=== PATIENT | female | born 1970 | race Caucasian/White ===

== ENCOUNTER 2016-12-23 16:24 | Observation (INO) | payer MEDICAID ==
[2016-12-23] MEDS ORDERED: NS 1,000 ML IV ONE (16:48)
--- NOTE | 2016-12-23 16:48 | EDPHY ---
H & P Stated Complaint: 6 months weakness/dizzy lab tests with low hgb/hct HPI/ROS: HPI CHIEF COMPLAINT: Generalized weak, Possible Anemia, Fatigue HISTORY OF PRESENT ILLNESS: This patient very pleasant 46-year-old female, denies any significant medical history does not take any daily medications, she does tell me she takes the [place], [place] root, who presents to the emergency room with fatigue x1 year, generalized weakness with worsening lightheadedness. She went saw her primary care doctor at [facility], and had routine blood work done and was notified that she has a very low hemoglobin of 4.5. She denies black tarry stool, denies vomiting blood, denies blood in her urine. She does tell me that she has menstrual periods at a rather heavy every month. Currently this time she denies chest pain. She does get dyspnea on exertion. Past Medical History: Denies medical history Past Surgical History: Denies surgical Social History: Occasional tobacco use, uses [place] Family History: Noncontributory ROS REVIEW OF SYSTEMS: A comprehensive 10 point review of systems is otherwise negative aside from elements mentioned in the history of present illness. Exam Constitutional appears well nontoxic, triage nursing summary reviewed, vital signs reviewed, awake/alert. Eyes normal conjunctivae and sclera, EOMI, PERRLA. HENT pale conjunctivae , atraumatic, moist mucus membranes, no epistaxis, neck supple/ no meningismus, no raccoon eyes. Respiratory clear to auscultation bilaterally, normal breath sounds, no respiratory distress, no wheezing. Cardiovascular rate normal, regular rhythm, no murmur, no edema, distal pulses normal. Gastrointestinal soft, non-tender, no rebound, no guarding, normal bowel sounds, no distension, no pulsatile mass. Genitourinary no CVA tenderness. Musculoskeletal no midline vertebral tenderness, full range of motion, no calf swelling, no tenderness of extremities, no meningismus, good pulses, neurovascularly intact. Skin pink, warm, & dry, no rash, skin atraumatic. Neurologic awake, alert and oriented x 3, AAOx3, moves all 4 extremities equally, motor intact, sensory intact, CN II-XII intact, normal cerebellar, normal vision, normal speech. Psychiatric normal mood/affect. Heme/Lymph/Immune no lymphadenopathy. Differential Diagnosis: Includes but is not limited to in a particular order, severe anemia, blood loss anemia, microcytic anemia Medical Decision Making: Plan for this patient will type and screen, 2 IVs, will need rectal exam to rule out occult blood feces. Check urinalysis. Check hemoglobin H&H. May need blood transfusion. Re-evaluation: Rectal exam performed. Structural Designer at bedside ALYSA Peña. Rectal exam dark stool. Minimal vault. No mass. 1807: Patient's hemoglobin 4.1. Patient has been typed and screen. 2 large- bore IVs. I have ordered her 2 units of packed red blood cells. I did send blood studies. I did speak with Dr. Mike Urbina who agrees to admit this patient. Patient hemodynamically stable at this time. Rectal exam brown stool. No blood. Possible anemia from menorrhagia. No active vaginal bleeding at this time. Source: Patient - Personal History LMP (Females 10-55): 15-21 Days Ago Current Tetanus/Diphtheria Vaccine: No - Medical/Surgical History Hx Asthma: No Hx Chronic Respiratory Disease: No Hx Diabetes: No Hx Cardiac Disease: No Hx Renal Disease: No Hx Cirrhosis: No Hx Alcoholism: No Hx HIV/AIDS: No Hx Splenectomy or Spleen Trauma: No Other PMH: denies - Social History Smoking Status: Current some day smoker Constitutional: Initial Vital Signs Temperature (C) 36.9 C 12/23/16 16:29 Heart Rate 91 12/23/16 16:29 Respiratory Rate 17 12/23/16 16:29 Blood Pressure 98/70 L 12/23/16 16:29 O2 Sat (%) 99 12/23/16 16:29 O2 Delivery Mode Room Air Allergies/Adverse Reactions: No Known Allergies Allergy (Unverified 12/23/16 16:29) Home Medications: Medication Instructions Recorded NK [No Known Home Meds] 12/23/16 Medical Decision Making - Data Points Laboratory Results: Laboratory Results 12/23/16 17:08 12/23/16 17:08 12/23/16 12/23/16 12/23/16 17:35 17:25 17:08 WBC RBC Hgb Hct MCV MCH MCHC RDW Plt Count MPV Neut % (Auto) Lymph % (Auto) Geary % (Auto) Eos % (Auto) Baso % (Auto) Nucleat RBC Rel Count Absolute Neuts (auto) Absolute Lymphs (auto) Absolute Monos (auto) Absolute Eos (auto) Absolute Basos (auto) Absolute Nucleated RBC Immature Gran % Immature Gran # Platelet Estimate Smear Review By PT INR APTT Sodium Potassium Chloride Carbon Dioxide Anion Gap BUN Creatinine Estimated GFR Glucose Calcium Iron TIBC Iron Saturation Ferritin Total Bilirubin Conjugated Bilirubin Unconjugated Bilirubin AST ALT Alkaline Phosphatase Total Protein Albumin Lipase Beta HCG, Qual Urine Color PALE YELLOW Urine Appearance HAZY Urine pH 5.0 (5.0-7.5) Ur Specific [place] 1.003 (1.002-1.030) Urine Protein NEGATIVE (NEGATIVE) Urine Ketones NEGATIVE (NEGATIVE) Urine Blood NEGATIVE (NEGATIVE) Urine Nitrate NEGATIVE (NEGATIVE) Urine Bilirubin NEGATIVE (NEGATIVE) Urine Urobilinogen NEGATIVE EU EU (0.2-1.0) Ur Leukocyte Esterase NEGATIVE (NEGATIVE) Urine Glucose NEGATIVE (NEGATIVE) Stool Occult Bld Scrn NEGATIVE (NEGATIVE) Patient ABO/Rh O NEGATIVE Antibody Screen NEGATIVE Crossmatch IS Only See Detail 12/23/16 12/23/16 12/23/16 17:08 17:08 17:08 WBC RBC Hgb Hct MCV MCH MCHC RDW Plt Count MPV Neut % (Auto) Lymph % (Auto) Geary % (Auto) Eos % (Auto) Baso % (Auto) Nucleat RBC Rel Count Absolute Neuts (auto) Absolute Lymphs (auto) Absolute Monos (auto) Absolute Eos (auto) Absolute Basos (auto) Absolute Nucleated RBC Immature Gran % Immature Gran # Platelet Estimate Smear Review By PT 14.3 SEC SEC (12.0-15.0) INR 1.12 (0.83-1.16) APTT 30.1 SEC SEC (23.0-38.0) Sodium 136 mEq/L mEq/L (134-144) Potassium 4.4 mEq/L mEq/L (3.5-5.2) Chloride 105 mEq/L mEq/L (97-110) Carbon Dioxide 18 mEq/l L mEq/l (22-31) Anion Gap 13 mEq/L mEq/L (8-16) BUN 10 mg/dL mg/dL (7-23) Creatinine 0.6 mg/dL mg/dL (0.6-1.0) Estimated GFR > 60 Glucose 90 mg/dL mg/dL (70-100) Calcium 9.1 mg/dL mg/dL (8.5-10.4) Iron 19.0 mcg/dL L mcg/dL (37-170) TIBC 499 ug/dL H ug/dL (260-490) Iron Saturation 4 % L % (20-55) Ferritin Pending Total Bilirubin 1.5 mg/dL H mg/dL (0.1-1.4) Conjugated Bilirubin 0.3 mg/dL mg/dL (0.0-0.5) Unconjugated Bilirubin 1.2 mg/dL H mg/dL (0.0-1.1) AST 16 IU/L IU/L (14-46) ALT 22 IU/L IU/L (9-52) Alkaline Phosphatase 62 IU/L IU/L (38-126) Total Protein 7.4 g/dL g/dL (6.3-8.2) Albumin 4.6 g/dL g/dL (3.5-5.0) Lipase 73.0 IU/L IU/L (23-300) Beta HCG, Qual NEGATIVE Urine Color Urine Appearance Urine pH Ur Specific [place] Urine Protein Urine Ketones Urine Blood Urine Nitrate Urine Bilirubin Urine Urobilinogen Ur Leukocyte Esterase Urine Glucose Stool Occult Bld Scrn Patient ABO/Rh Antibody Screen Crossmatch IS Only 12/23/16 17:08 WBC 5.60 10^3/uL 10^3/uL (3.80-9.50) RBC 3.16 10^6/uL L 10^6/uL (4.18-5.33) Hgb 4.1 g/dL L* g/dL (12.6-16.3) Hct 18.3 % L % (38.0-47.0) MCV 57.9 fL L fL (81.5-99.8) MCH 13.0 pg L pg (27.9-34.1) MCHC 22.4 g/dL L g/dL (32.4-36.7) RDW 22.5 % H % (11.5-15.2) Plt Count 374 10^3/uL 10^3/uL (150-400) MPV TNP Neut % (Auto) 51.2 % % (39.3-74.2) Lymph % (Auto) 38.4 % % (15.0-45.0) Geary % (Auto) 7.3 % % (4.5-13.0) Eos % (Auto) 2.5 % % (0.6-7.6) Baso % (Auto) 0.2 % L % (0.3-1.7) Nucleat RBC Rel Count 0.5 % H % (0.0-0.2) Absolute Neuts (auto) 2.87 10^3/uL 10^3/uL (1.70-6.50) Absolute Lymphs (auto) 2.15 10^3/uL 10^3/uL (1.00-3.00) Absolute Monos (auto) 0.41 10^3/uL 10^3/uL (0.30-0.80) Absolute Eos (auto) 0.14 10^3/uL 10^3/uL (0.03-0.40) Absolute Basos (auto) 0.01 10^3/uL L 10^3/uL (0.02-0.10) Absolute Nucleated RBC 0.03 10^3/uL H 10^3/uL (0-0.01) Immature Gran % 0.4 % % (0.0-1.1) Immature Gran # 0.02 10^3/uL 10^3/uL (0.00-0.10) Platelet Estimate Pending Smear Review By Pending PT INR APTT Sodium Potassium Chloride Carbon Dioxide Anion Gap BUN Creatinine Estimated GFR Glucose Calcium Iron TIBC Iron Saturation Ferritin Total Bilirubin Conjugated Bilirubin Unconjugated Bilirubin AST ALT Alkaline Phosphatase Total Protein Albumin Lipase Beta HCG, Qual Urine Color Urine Appearance Urine pH Ur Specific [place] Urine Protein Urine Ketones Urine Blood Urine Nitrate Urine Bilirubin Urine Urobilinogen Ur Leukocyte Esterase Urine Glucose Stool Occult Bld Scrn Patient ABO/Rh Antibody Screen Crossmatch IS Only Medications Given: Discontinued Medications Sodium Chloride (Ns) 1,000 mls @ 0 mls/hr IV ONCE ONE; Wide Open PRN Reason: Protocol Stop: 12/23/16 16:49 Last Admin: 12/23/16 17:26 Dose: 1,000 mls Departure - Departure Disposition: [facility] Inpatient Acute Clinical Impression: Fatigue Qualifiers: Fatigue type: unspecified Qualified Code(s): R53.83 - Other fatigue Anemia Qualifiers: Anemia type: unspecified type Qualified Code(s): D64.9 - Anemia, unspecified Condition: Fair Referrals: Binta Thompson NP [Primary Care Provider] - As per Instructions
[2016-12-23 17:25] LABS: % IMMATURE GRANULYOCYTES 0.4 % (0.0-1.1); ABSOLUTE IMMATURE GRANULOCYTES 0.02 10^3/uL (0.00-0.10); ABSOLUTE NRBC COUNT 0.03 10^3/uL (0-0.01); ADD DIFF? NO; ADD MORPH? YES; ADD SCAN? NO; ATYPICAL LYMPHOCYTE FLAG 10 (0-99); FRAGMENT RBC FLAG 70 (0-99); HEMATOCRIT 18.3 % (38.0-47.0); LEFT SHIFT FLG 0 (0-99); LIPEMIA HEMOLYSIS FLAG 50 (0-99); NRBC-AUTO% 0.5 % (0.0-0.2); PLATELET CLUMPS FLAG 70 (0-99); PLATELET COUNT 374 10^3/uL (150-400); RED BLOOD CELL COUNT 3.16 10^6/uL (4.18-5.33)
[2016-12-23 17:28] LABS: MEAN CELL HEMOGLOBIN CONCENTR. 22.4 g/dL (32.4-36.7); MEAN CELL VOLUME 57.9 fL (81.5-99.8); RED CELL DISTRIBUTION WIDTH 22.5 % (11.5-15.2)
[2016-12-23 17:29] LABS: HEMOGLOBIN 4.1 g/dL (12.6-16.3)
[2016-12-23 17:38] LABS: COLOR PALE YELLOW; LEUKOCYTE ESTERASE,URINE NEGATIVE (NEGATIVE); NITRITE,URINE NEGATIVE (NEGATIVE)
[2016-12-23 17:44] LABS: ALANINE AMINOTRANSFERASE 22 IU/L (9-52); ALBUMIN 4.6 g/dL (3.5-5.0); ALKALINE PHOSPHATASE 62 IU/L (38-126); ANION GAP 13 mEq/L (8-16); ASPARTATE AMINOTRANSFERASE 16 IU/L (14-46); BILIRUBIN,TOTAL 1.5 mg/dL (0.1-1.4); BILIRUBIN-CONJUGATED 0.3 mg/dL (0.0-0.5); BILIRUBIN-UNCONJUGATED 1.2 mg/dL (0.0-1.1); CALCIUM 9.1 mg/dL (8.5-10.4); CARBON DIOXIDE 18 mEq/l (22-31); CHLORIDE 105 mEq/L (97-110); CREATININE 0.6 mg/dL (0.6-1.0); GLOMERULAR FILTRATION RATE > 60; GLUCOSE 90 mg/dL (70-100); POTASSIUM 4.4 mEq/L (3.5-5.2); SODIUM 136 mEq/L (134-144); TOTAL PROTEIN 7.4 g/dL (6.3-8.2)
[2016-12-23 17:48] LABS: INR 1.12 (0.83-1.16); PROTIME(PATIENT) 14.3 SEC (12.0-15.0)
[2016-12-23 17:49] LABS: APTT 30.1 SEC (23.0-38.0)
[2016-12-23 17:54] LABS: % SATURATION 4 % (20-55); TOTAL IRON BINDING CAPACITY 499 ug/dL (260-490)
[2016-12-23 18:19] LABS: FERRITIN - BCH 2.1 ng/mL (6.2-264.0)
[2016-12-23 18:30] LABS: ELLIPTOCYTES 1+; HYPOCHROMIA 3+; MICROCYTES 3+; PLATELET ESTIMATE ADEQUATE (ADEQ); POLYCHROMASIA 1+
[2016-12-23] MEDS ORDERED: ONDANSETRON 4 MG/2 ML VIAL IVP PRN (18:35)
[2016-12-23] MEDS ORDERED: ONDANSETRON DISINTEGRATING 4 MG TAB PO PRN (18:35)
[2016-12-23] MEDS ORDERED: ACETAMINOPHEN 325 MG TAB PO PRN (18:35)
--- NOTE | 2016-12-23 19:19 | PDGENHP ---
History and Physical - Chief Complaint Acute dizziness - History of Present Illness primary care provider: Binta Thompson at [facility] HPI: 46-year-old female presenting with acute dizziness characterized as a foggy lightheaded feeling with associated visual changes of white specks exacerbated by standing, alleviated by sitting, occurring intermittently over the past couple months with associated generalized fatigue. She reports that the fatigue began approximately 6 months ago and has been progressive and persistent thereafter. She has sought the attention of her energy practitioner as well as her primary care provider who performed an EKG and sent a CBC. The EKG was reportedly normal but the CBC demonstrated severe anemia. The patient was instructed to come to the emergency department. She denies overt chest pain , palpitations, shortness of breath. The symptoms occurred in the context of significantly length and and heavy menstrual cycles beginning approximately 18 months ago. At that time, the patient returned from a trip in [facility] and she experienced what she describes as menorrhagia lasting 14 days. Since that time, she has experienced monthly cycles which last approximately 7-10 days. The bleeding is particularly profuse for approximately 2-3 of those days. She otherwise has not experienced any change in her bowel movements and notes that her stool consistency is still brown and regular. She has noted bloating after meals but reports that overall her appetite has been good and she regularly eats a balanced diet consisting of vegetables and meat. She had originally attributed her fatigue to interrupted sleeping patterns which she experiences on a regular basis with her [employer] ceremonies. 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 Her last particularly lengthy ceremony was 3 months ago and it lasted several nights. History Information - Allergies/Home Medication List Allergies/Adverse Reactions: No Known Allergies Allergy (Unverified 12/23/16 16:29) Home Medications: NK [No Known Home Meds] 12/23/16 [Last Taken Unknown] I have personally reviewed and updated: family history, medical history, social history, surgical history - Past Medical History Additional medical history: She was told she had anemia around age 20, but it has never been an issue in her adult life - Surgical History Reports: no pertinent surgical hx - Family History Additional family history: No family history of anemias or blood dyscrasias - Social History Smoking Status: Current some day smoker Alcohol Use: None Drug Use: Other (regular use of ayauasca for spiritual/ceremonial purposes) Additional social history: Emotionally challenging 18 months for the patient, reprocessing childhood trauma Review of Systems ROS: 10pt was reviewed & negative except for what was stated in HPI & below Constitutional: Reports: weakness Neurological: Reports: other (dizziness) Physical Exam Temp Pulse Resp BP Pulse Ox 36.6 C 78 18 114/67 95 12/23/16 18:00 12/23/16 18:00 12/23/16 18:00 12/23/16 18:00 12/23/16 18:00 Constitutional: no apparent distress, appears nourished, not in pain, other ( pale appearing) Eyes: PERRL, EOMI, icteric sclera Ears, Nose, Mouth, Throat: moist mucous membranes, hearing normal, ears appear normal, no oral mucosal ulcers Cardiovascular: regular rate and rhythym, no murmur, rub, or gallop, No edema Respiratory: no respiratory distress, no rales or rhonchi, clear to auscultation Gastrointestinal: normoactive bowel sounds, soft, non-tender abdomen, no palpable masses Genitourinary: no bladder fullness, no bladder tenderness Skin: warm, normal color, no rashes or abrasions, no fluctuance, no induration, No mottled Neurologic: AAOx3, sensation intact bilaterally, No weakness (motor 5/5 all ext) Psychiatric: interacting appropriately, not anxious, not encephalopathic, thought process linear, other Lab Data & Imaging Review 12/23/16 17:08 12/23/16 17:08 WBC 5.60 10^3/uL (3.80-9.50) 12/23/16 17:08 RBC 3.16 10^6/uL (4.18-5.33) L 12/23/16 17:08 Hgb 4.1 g/dL (12.6-16.3) L* 12/23/16 17:08 Hct 18.3 % (38.0-47.0) L 12/23/16 17:08 MCV 57.9 fL (81.5-99.8) L 12/23/16 17:08 MCH 13.0 pg (27.9-34.1) L 12/23/16 17:08 MCHC 22.4 g/dL (32.4-36.7) L 12/23/16 17:08 RDW 22.5 % (11.5-15.2) H 12/23/16 17:08 Plt Count 374 10^3/uL (150-400) 12/23/16 17:08 MPV TNP 12/23/16 17:08 Neut % (Auto) 51.2 % (39.3-74.2) 12/23/16 17:08 Lymph % (Auto) 38.4 % (15.0-45.0) 12/23/16 17:08 [place] % (Auto) 7.3 % (4.5-13.0) 12/23/16 17:08 Eos % (Auto) 2.5 % (0.6-7.6) 12/23/16 17:08 Baso % (Auto) 0.2 % (0.3-1.7) L 12/23/16 17:08 Nucleat RBC Rel Count 0.5 % (0.0-0.2) H 12/23/16 17:08 Absolute Neuts (auto) 2.87 10^3/uL (1.70-6.50) 12/23/16 17:08 Absolute Lymphs (auto) 2.15 10^3/uL (1.00-3.00) 12/23/16 17:08 Absolute Monos (auto) 0.41 10^3/uL (0.30-0.80) 12/23/16 17:08 Absolute Eos (auto) 0.14 10^3/uL (0.03-0.40) 12/23/16 17:08 Absolute Basos (auto) 0.01 10^3/uL (0.02-0.10) L 12/23/16 17:08 Absolute Nucleated RBC 0.03 10^3/uL (0-0.01) H 12/23/16 17:08 Immature Gran % 0.4 % (0.0-1.1) 12/23/16 17:08 Immature Gran # 0.02 10^3/uL (0.00-0.10) 12/23/16 17:08 Platelet Estimate ADEQUATE (ADEQ) 12/23/16 17:08 Polychromasia 1+ H 12/23/16 17:08 Hypochromasia 3+ H 12/23/16 17:08 Microcytic Cells 3+ H 12/23/16 17:08 Tear Drop Cells 1+ H 12/23/16 17:08 Elliptocytes 1+ H 12/23/16 17:08 PT 14.3 SEC (12.0-15.0) 12/23/16 17:08 INR 1.12 (0.83-1.16) 12/23/16 17:08 APTT 30.1 SEC (23.0-38.0) 12/23/16 17:08 Sodium 136 mEq/L (134-144) 12/23/16 17:08 Potassium 4.4 mEq/L (3.5-5.2) 12/23/16 17:08 Chloride 105 mEq/L (97-110) 12/23/16 17:08 Carbon Dioxide 18 mEq/l (22-31) L 12/23/16 17:08 Anion Gap 13 mEq/L (8-16) 12/23/16 17:08 BUN 10 mg/dL (7-23) 12/23/16 17:08 Creatinine 0.6 mg/dL (0.6-1.0) 12/23/16 17:08 Estimated GFR > 60 12/23/16 17:08 Glucose 90 mg/dL (70-100) 12/23/16 17:08 Calcium 9.1 mg/dL (8.5-10.4) 12/23/16 17:08 Iron 19.0 mcg/dL (37-170) L 12/23/16 17:08 TIBC 499 ug/dL (260-490) H 12/23/16 17:08 Iron Saturation 4 % (20-55) L 12/23/16 17:08 Ferritin 2.1 ng/mL (6.2-264.0) L 12/23/16 17:08 Total Bilirubin 1.5 mg/dL (0.1-1.4) H 12/23/16 17:08 Conjugated Bilirubin 0.3 mg/dL (0.0-0.5) 12/23/16 17:08 Unconjugated Bilirubin 1.2 mg/dL (0.0-1.1) H 12/23/16 17:08 AST 16 IU/L (14-46) 12/23/16 17:08 ALT 22 IU/L (9-52) 12/23/16 17:08 Alkaline Phosphatase 62 IU/L (38-126) 12/23/16 17:08 Total Protein 7.4 g/dL (6.3-8.2) 12/23/16 17:08 Albumin 4.6 g/dL (3.5-5.0) 12/23/16 17:08 Lipase 73.0 IU/L (23-300) 12/23/16 17:08 Beta HCG, Qual NEGATIVE 12/23/16 17:08 Urine Color PALE YELLOW 12/23/16 17:25 Urine Appearance HAZY 12/23/16 17:25 Urine pH 5.0 (5.0-7.5) 12/23/16 17:25 Ur Specific [place] 1.003 (1.002-1.030) 12/23/16 17:25 Urine Protein NEGATIVE (NEGATIVE) 12/23/16 17:25 Urine Ketones NEGATIVE (NEGATIVE) 12/23/16 17:25 Urine Blood NEGATIVE (NEGATIVE) 12/23/16 17:25 Urine Nitrate NEGATIVE (NEGATIVE) 12/23/16 17:25 Urine Bilirubin NEGATIVE (NEGATIVE) 12/23/16 17:25 Urine Urobilinogen NEGATIVE EU (0.2-1.0) 12/23/16 17:25 Ur Leukocyte Esterase NEGATIVE (NEGATIVE) 12/23/16 17:25 Urine Glucose NEGATIVE (NEGATIVE) 12/23/16 17:25 Stool Occult Bld Scrn NEGATIVE (NEGATIVE) 12/23/16 17:35 Patient ABO/Rh O NEGATIVE 12/23/16 17:08 Antibody Screen NEGATIVE 12/23/16 17:08 Crossmatch IS Only See Detail 12/23/16 17:08 Assessment & Plan Assessment: 46-year-old female presents with severe anemia and suspected menometrorrhagia as the cause Plan: 1. Severe iron deficient anemia. Macrocytic, low iron, high TIBC, no history of GI surgeries or unusual dietary intake, FOB neg, normal BUN, suspect this is all secondary to menometrorrhagia - will ensure there is no hemolytic component given mildly elevated total bilirubin, get LDH level - will ensure that there is not a marrow suppression component with under production, get reticulocyte count - given that the patient is symptomatic, transfuse 2 units packed red blood cells and repeat hemoglobin and hematocrit levels in a.m. - give patient 1 dose of IV iron tomorrow a.m. and then initiate oral supplement with Senokot S - will discuss with Dr. Hutchison from Hematology to ensure there is no further inpatient workup indicated 2. Suspected menometrorrhagia. Acute on chronic, new problem this provider, further workup indicated. Patient describes approximately 18 months of menstrual cycles of prolonged duration and increased heavy flow, likely contributing to above - discussed with commercial representative provider Dr. Laura Lopez, she has recommended to me a pelvic ultrasound, will perform - Dr. Lopez will follow up on the ultrasound tonight if there are any urgent or emergent findings, she will communicate those back to the hospitalist - if there are no emergent findings, Dr. Lopez recommends that we schedule an outpatient follow-up appointment at their practice so that they can discuss the results and further workup as well as treatment with the patient in the outpatient setting given that the patient is not currently in the midst of her cycle Diet. Regular Prophylaxis. Low risk, SCDs Code. Full Disposition. Anticipated discharge 12/24/2016, pending further workup as outlined above.
[2016-12-23 19:28] LABS: HEMATOCRIT 18.4 % (38.0-47.0)
[2016-12-23 19:55] LABS: LACTATE DEHYDROGENASE 482 IU/L (313-618)
[2016-12-24 05:38] LABS: % IMMATURE GRANULYOCYTES 0.7 % (0.0-1.1); ABSOLUTE IMMATURE GRANULOCYTES 0.05 10^3/uL (0.00-0.10); ABSOLUTE NRBC COUNT 0.07 10^3/uL (0-0.01); ADD DIFF? NO; ADD MORPH? YES; ADD SCAN? NO; ATYPICAL LYMPHOCYTE FLAG 0 (0-99); FRAGMENT RBC FLAG 80 (0-99); HEMATOCRIT 24.2 % (38.0-47.0); LEFT SHIFT FLG 0 (0-99); LIPEMIA HEMOLYSIS FLAG 70 (0-99); MEAN CELL HEMOGLOBIN 17.6 pg (27.9-34.1); PLATELET CLUMPS FLAG 60 (0-99); PLATELET COUNT 286 10^3/uL (150-400)
[2016-12-24 05:43] LABS: HEMOGLOBIN 6.7 g/dL (12.6-16.3); MEAN CELL HEMOGLOBIN CONCENTR. 27.7 g/dL (32.4-36.7); MEAN CELL VOLUME 63.7 fL (81.5-99.8); RED CELL DISTRIBUTION WIDTH 26.2 % (11.5-15.2)
[2016-12-24 05:52] LABS: ALANINE AMINOTRANSFERASE 21 IU/L (9-52); ALBUMIN 3.6 g/dL (3.5-5.0); ALKALINE PHOSPHATASE 52 IU/L (38-126); ANION GAP 10 mEq/L (8-16); ASPARTATE AMINOTRANSFERASE 18 IU/L (14-46); BILIRUBIN,TOTAL 3.3 mg/dL (0.1-1.4); CALCIUM 8.7 mg/dL (8.5-10.4); CARBON DIOXIDE 18 mEq/l (22-31); CHLORIDE 110 mEq/L (97-110); CREATININE 0.6 mg/dL (0.6-1.0); GLOMERULAR FILTRATION RATE > 60; GLUCOSE 80 mg/dL (70-100); POTASSIUM 4.1 mEq/L (3.5-5.2); SODIUM 138 mEq/L (134-144); TOTAL PROTEIN 6.2 g/dL (6.3-8.2)
[2016-12-24 06:18] LABS: BILIRUBIN-CONJUGATED 0.3 mg/dL (0.0-0.5)
[2016-12-24 06:32] LABS: HYPOCHROMIA 3+; MICROCYTES 3+; PLATELET ESTIMATE ADEQUATE (ADEQ); POLYCHROMASIA 1+
[2016-12-24 08:17] VITALS: BP 106/68; PULSE 73; RESP 18; TEMP 98; O2SAT 91
[2016-12-24] MEDS ORDERED: SODIUM FERRIC GLUCONAT/SUCROSE 125 MG in NS 100 ML IV SCH (09:00)
[2016-12-24] MEDS ORDERED: FERROUS SULFATE 325 MG TAB PO SCH (09:00)
[2016-12-24] MEDS ORDERED: SENNOSIDES/DOCUSATE SODIUM TAB PO SCH (09:00)
--- NOTE | 2016-12-24 15:32 | GCON ---
[f rep st] CONSULTATION HEMATOLOGY CONSULTATION REFERRING PHYSICIAN: René Sung MD REASON FOR CONSULTATION: Anemia. HISTORY OF PRESENT ILLNESS: Faith is a previously healthy woman who has been developing progressive fatigue. She saw her primary care provider and had laboratory studies which apparently demonstrated severe anemia. She was instructed to go to the emergency room. She complained of a "light-headed feeling," exacerbated by standing intermittently over the past couple of months. Labs on admission demonstrated a hemoglobin 4.1, MCV 57.9, WBC 5.6 ( normal differential), platelets 374,000. Peripheral smear with polychromasia, hypochromasia, macrocytosis, elliptocytosis, and tear drop cells. Corrected reticulocyte count 1.0. She received 2 units of PRBCs yesterday. She feels a little "different" this morning. Hemoglobin this morning 6.7. She reports heavy periods over the last 18 months. They are different than they were previously. She has regular periods which last 7-10 days with heavier bleeding the first 2-3 days. She uses pads and does not need to change them hourly. She does pass some clots. No GI bleeding. She is not a vegetarian. She has started chewing ice over the last few months. She also has a craving for a powdered toothpaste she is using and brushes her teeth several times a day because of that. No other pica. PAST MEDICAL HISTORY: No major illnesses. PAST SURGICAL HISTORY: None. FAMILY HISTORY: No blood disorders. She describes [place], [place], and some [place]ag[place] ancestry. SOCIAL HISTORY: She lives in [place]. She is a smoker. No alcohol. She does use Ayahuasca regularly. She has a 23-year-old son. SENIOR LOGISTICS MANAGER HISTORY: G1, P1, son 23 years old. REVIEW OF SYSTEMS: CONSTITUTIONAL: As above. HEENT: No mouth pain or oral ulcers. CARDIOVASCULAR: No chest pain, palpitations, PND, orthopnea or lower extremity edema. RESPIRATORY: No dyspnea, pleurisy, cough. GI: No dysphagia , abdominal pain, nausea, vomiting, changes in bowel habits, melena, hematochezia. : No hematuria. MOLECULAR GENETICIST: Per HPI. HEMATOLOGIC: No gingival bleeding, easy bruising, other bleeding. MUSCULOSKELETAL: No arthralgias. NEUROLOGIC: No new symptoms. PHYSICAL EXAMINATION: VITAL SIGNS: Blood pressure 106/68, pulse 71, respirations 18, 91% on room air, afebrile. GENERAL: Pleasant woman in no acute distress. Color is normal (she reports noticing her color is much different than it was yesterday.) HEENT: No scleral icterus. CARDIOVASCULAR: Regular rate and rhythm, no pretibial edema. LUNGS: Clear to auscultation. ABDOMEN: Positive bowel sounds, soft, nontender, nondistended. SKIN: No ecchymoses, petechiae. NEUROLOGIC: Grossly nonfocal. LABORATORY STUDIES: Per HPI. This morning, WBC 6.8, normal differential. Hemoglobin 6.7, platelets 286,000. Iron studies on admission demonstrate ferritin 2.1, iron 19, TIBC 499, iron saturation 4%. Total bilirubin 1.5, unconjugated 1.2. This morning, total bilirubin 3.3, unconjugated 3.0, otherwise normal LFTs. LDH 482. IMPRESSION: 1. Iron deficiency anemia due to menstrual blood loss: She has no history to suggest another source of bleeding. Hemoccult negative. Pelvic ultrasound demonstrated fibroids. She will see Dr. Lopez as an outpatient. She has received 2 units PRBCs and will receive ferrous gluconate 125 mg IV this morning. She is minimally symptomatic and I do not think she requires further transfusions. We will arrange IV iron (Feraheme x2 doses) in my office beginning next week. She can continue oral iron supplementation which has been started inpatient (ferrous sulfate 325 mg daily), but if she has significant GI side effects, it is not critical that she continue that [facility] she will be receiving IV iron. She has a very low MCV (less than 60), which is unusual with iron deficiency and can be seen with thalassemia. She may have a combined disorder and we can evaluate further once her iron stores are repleted. 2. Indirect hyperbilirubinemia: I doubt she is hemolyzing given the normal LDH. Bilirubin can be elevated with ineffective erythropoiesis (underlying thalassemia) and may have been exacerbated by her recent transfusion, although that would not explain her mildly elevated indirect bilirubin on admission. This will be repeated as an outpatient. /[id number]/MODL MTDD
--- NOTE | 2016-12-24 18:03 | PDDCSUM ---
Discharge Summary Discharge Summary: DISCHARGE SUMMARY FOLLOW-UP ITEMS: Repeat CBC and complete metabolic profile as outpatient DATE OF ADMISSION: 12/23/2016 DATE OF DISCHARGE: 12/24/2016 DISCHARGE DIAGNOSES: 1. Iron deficient anemia 2. Menometrorrhagia 3. Hyperbilirubinemia CONSULTATIONS: Hematology by Dr. Mcgill PROCEDURES / IMAGING: Transvaginal ultrasound demonstrating numerous uterine fibroids CHIEF COMPLAINT: Acute fatigue SUBJECTIVE: Patient is feeling well at time of discharge, she is ambulatory without any lightheadedness or fatigue PHYSICAL EXAM ON DISCHARGE: Systolic blood pressure is 110, heart rate 70, afebrile overnight, satting well on room air, mildly jaundiced with mildly icteric sclera LABS ON DISCHARGE: Total bilirubin 3.3, direct bilirubin 0.3, hemoglobin 6.7, platelets [id number], white blood cell count 6800, BUN 9, LDH 480, reticulocyte 2.5%, creatinine 0.6, potassium 4.1 HOSPITAL COURSE BY PROBLEM: 1. Iron deficient anemia. Severe microcytic anemia with initial MCV of 58 iron level 19, TIBC 500, iron saturation 4%, no evidence of hemolysis on labs. Most likely cause is menometrorrhagia. Given that she was symptomatic, she received 2 units of packed red blood cells and responded appropriately. She also received 1 dose of IV iron and will follow up with Dr. Mcgill receive subsequent doses as well as blood level monitoring. Provided her with recommendations to take oral iron and stool softener if tolerated. Of note to his fecal occult blood negative. 2. Menometrorrhagia. This is the most likely cause of her blood loss. She has evidence of numerous fibroids on ultrasound. Will follow up with Dr. Lopez or 1 of her partners in the short term to discuss treatment options. 3. Hyperbilirubinemia. Indirect, most likely secondary to Gilbert's or a benign situation of rapid red cell production/repletion without any evidence of hemolysis on other labs. This will be followed up as an outpatient. DISCHARGE MEDICATIONS: Please see official discharge medication reconciliation sheet in chart, iron and stool softener daily. DISCHARGE INSTRUCTIONS: Please follow up with Dr. Mcgill and Dr. Lopez as an outpatient.
== END 2016-12-24 11:38 | disposition home or self-care (01) ==
LOC: INTOOBSV 18:07 → F3E 19:49
PROVIDERS: ADMIT Family Medicine; ATTEND Family Medicine
PROC: 30233N1 Transfusion of Nonautologous Red Blood Cells into Peripheral Vein, Percutaneous Approach (ICD-10-PCS; principal; 2016-12-23)
DX: D50.9 Iron deficiency anemia, unspecified (principal); N92.1 Excessive and frequent menstruation with irregular cycle; E80.6 Other disorders of bilirubin metabolism; D25.9 Leiomyoma of uterus, unspecified
CPT/HCPCS: 36430; 76856; 96360; 99285; G0378; P9016; J2916

== ENCOUNTER 2017-07-13 08:43 | Observation (INO) | payer MEDICAID ==
[~2017-07-13 08:43] MED LIST: ACETAMINOPHEN 500 MG TAB PO ONE; BUPIVACAINE/EPI 0.5% 30 ML SDV ONE; GABAPENTIN 400 MG CAP PO ONE; PHENAZOPYRIDINE HCL 200 MG TAB PO ONE; ceFAZolin 2 GM/SWFI 2 GM/20 ML SYR IVP ONE
[2017-07-13] MEDS ORDERED: MIDAZOLAM 2 MG/2 ML VIAL IVP ONE (08:56)
--- NOTE | 2017-07-13 08:58 | PDANEPAE ---
ANE History of Present Illness Laparoscopic assisted DaVinci hysterectomy ANE Past Medical History - Cardiovascular History Hx Hypertension: No Hx Arrhythmias: No Hx Chest Pain: No Hx Coronary Artery / Peripheral Vascular Disease: No Hx CHF / Valvular Disease: No Hx Palpitations: No Cardiovascular History Comment: BP RUNS LOW - Pulmonary History Hx COPD: No Hx Asthma/Reactive Airway Disease: No Hx Recent Upper Respiratory Infection: No Hx Oxygen in Use at Home: No Hx Sleep Apnea: No Sleep Apnea Screening Result - Last Documented: Negative - Neurologic History Hx Cerebrovascular Accident: No Hx Seizures: No Hx Dementia: No Neurologic History Comment: FALL W/HEAD TRAUMA 7 YRS AGO - Endocrine History Hx Diabetes: No Hypothyroid: No Hyperthyroid: No - Renal History Hx Renal Disorders: No - Liver History Hx Hepatic Disorders: No - Neurological & Psychiatric Hx Hx Neurological and Psychiatric Disorders: No - Cancer History Hx Cancer: No 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 SKIN RASHES IN PAST - Chronic Pain History Chronic Pain: No - Surgical History Prior Surgeries: WISDOM TEETH ANE Review of Systems Review of systems is: negative Review of Systems: - Exercise capacity METS (RN): 4 METS ANE Patient History - Allergies Allergies/Adverse Reactions: No Known Allergies Allergy (Unverified 12/23/16 16:29) - Home Medications Home Medications: Herbals/Supplements -Info Only 06/08/17 [Last Taken Unknown] - Anes Hx Anes Hx: no prior problems - Smoking Hx Smoking Status: Former smoker - Family Anes Hx Family Hx Anesthesia Complications: NEG ANE Labs/Vital Signs - Vital Signs Height: 168.91 cm Weight: 72.575 kg ANE Physical Exam - Airway Neck exam: FROM Mallampati Score: Class 1 - Pulmonary Pulmonary: no respiratory distress, no rales or rhonchi - Cardiovascular Cardiovascular: regular rate and rhythym, no murmur, rub, or gallop - ASA Status ASA Status: I ANE Anesthesia Plan Anesthesia Plan: general endotracheal anesthesia
[2017-07-13] MEDS ORDERED: GABAPENTIN 400 MG CAP PO ONE (09:13)
[2017-07-13] MEDS ORDERED: ceFAZolin 2 GM/SWFI 2 GM/20 ML SYR IVP ONE (09:13)
[2017-07-13] MEDS ORDERED: ACETAMINOPHEN 500 MG TAB PO ONE (09:13)
[2017-07-13] MEDS ORDERED: PHENAZOPYRIDINE HCL 200 MG TAB PO ONE (09:13)
[2017-07-13] MEDS ORDERED: LR 1,000 ML IV SCH ×2 (09:30→14:00)
--- NOTE | 2017-07-13 09:46 | PDHPUP ---
History & Physical Update H&P update statement: This history and physical update is based on an assessment of the patient which was completed after admission or registration (within 24 hours), but prior to the surgery/procedure. H&P update: H&P reviewed & patient examined, no change in patient's condition since H&P completed
[2017-07-13] MEDS ORDERED: fentaNYL 250 MCG/5 ML INJ ONE (10:17)
[2017-07-13] MEDS ORDERED: PROPOFOL 200 MG/20 ML VIAL ONE ×4 (10:18→12:19)
[2017-07-13] MEDS ORDERED: PROPOFOL/EMULSION 500 MG/50 ML BOTTLE IV ONE (10:19)
[2017-07-13] MEDS ORDERED: ONDANSETRON 4 MG/2 ML VIAL ONE (10:52)
[2017-07-13] MEDS ORDERED: DEXAMETHASONE 4 MG/ML VIAL ONE (10:52)
[2017-07-13] MEDS ORDERED: LIDOCAINE 2% 5 ML SDV ONE (10:52)
[2017-07-13] MEDS ORDERED: ROCURONIUM 50 MG/5 ML VIAL ONE ×2 (10:52)
[2017-07-13] MEDS ORDERED: fentaNYL 100 MCG/2 ML INJ ONE ×3 (11:26→13:21)
[2017-07-13] MEDS ORDERED: OXYCODONE/APAP 5/325 TAB PO PRN (11:58)
[2017-07-13] MEDS ORDERED: HYDROCODONE/APAP 5/325 TAB PO PRN (11:58)
[2017-07-13] MEDS ORDERED: ONDANSETRON 4 MG/2 ML VIAL IVP PRN ×2 (11:58→13:45)
[2017-07-13] MEDS ORDERED: NALOXONE HCL 0.4 MG/ML INJ IVP PRN (11:58)
[2017-07-13] MEDS ORDERED: HYDROmorphONE/DILAUDID 1 MG/ML INJ IVP PRN ×2 (11:58→13:45)
[2017-07-13] MEDS ORDERED: SUGAMMADEX SODIUM 200 MG/2 ML VIAL IVP ONE (12:36)
[2017-07-13] MEDS: fentaNYL 100 MCG/2 ML INJ IVP PRN ×3 (13:23→15:22)
[2017-07-13] MEDS ORDERED: PROMETHAZINE HCL 25 MG/ML INJ IVP PRN (13:45)
--- NOTE | 2017-07-13 13:49 | POSTOPPROG ---
Post Op Note Date of Operation: 07/13/17 Surgeon: Yoshi Lutz Resident Service Coordinator: Aspen Page Anesthesiologist: Mirella Bryant Anesthesia: GET(General Endotracheal) Pre-op Diagnosis: Uterine fibroids Post-op Diagnosis: same Procedure: Robotic hyst, bilat ureterolysis, US Lig colpopexy, cysto Findings: 806 gm uterus Inf/Abcess present in the surg proc area at time of surgery?: No Depth: Superfical (Skin SQ) (Error, no infection) EBL: 50-100 Complications: None
--- NOTE | 2017-07-13 15:50 | POSTANESTH ---
Post Anesthetic Evaluation Cardiovascular Status: Normal, Stable Respiratory Status: Normal, Stable Level of Consciousness/Mental Status: Can Participate in Eval Pain Control: Adequate, Prn Tx Ordered Nausea/Vomiting Control: Adequate, Prn Tx Ordered Complications Possibly Related to Anesthesia: None Noted
[2017-07-13] MEDS: OXYCODONE/APAP 5/325 TAB PO PRN ×2 (15:59→21:13)
[2017-07-13] MEDS: KETOROLAC 30 MG/1 ML SDV IVP SCH ×2 (16:31→22:54)
[2017-07-13] MEDS ORDERED: KETOROLAC 30 MG/1 ML SDV IVP PRN (18:00)
[2017-07-13] MEDS: DOCUSATE SODIUM 100 MG CAP PO SCH (20:34)
[2017-07-13] MEDS: SIMETHICONE 80 MG TAB CHEW PO SCH ×2 (20:35→22:54)
--- NOTE | 2017-07-13 22:02 | GOP ---
[f rep st] OPERATIVE REPORT DATE OF OPERATION: 07/13/2017 SURGEON: Yoshi Lutz MD PUBLIC HEALTH MICROBIOLOGIST: Aspen Page CFA. ANESTHESIA: General. PREOPERATIVE DIAGNOSIS: 1. Symptomatic fibroid uterus. 2. Menorrhagia. 3. Pelvic pain. 4. Uterine prolapse. POSTOPERATIVE DIAGNOSIS: 1. Symptomatic fibroid uterus. 2. Menorrhagia. 3. Pelvic pain. 4. Uterine prolapse. PROCEDURE PERFORMED: 1. Robotic-assisted total laparoscopic hysterectomy, bilateral salpingectomy. 2. Bilateral ureterolysis. 3. Bilateral uterosacral ligament colpopexy. 4. Cystoscopy. FINDINGS: 806 g fibroid uterus. SPECIMENS: Uterus, cervix, bilateral tubes. ESTIMATED BLOOD LOSS: Less than 100 mL. DESCRIPTION OF PROCEDURE: Patient was taken to the operating room. She was identified. General ane sthesia administered and found to be adequate. She was placed in the lithotomy position, prepared an d draped in the normal sterile fashion. A VCare uterine manipulator was placed into the endometrial cavity and sutured to the cervix. A Knott catheter was then placed. Bimanual exam revealed an 18-week size fibroid uterus extending to just below the umbilicus. A 12 mm midline incision was made approximately 4 cm above the umbilicus. The Veress needle with the CO2 ga s flowing was advanced into the peritoneal cavity. The abdomen was then insufflated with carbon diox tanya gas. The 12 mm trocar followed by the laparoscope were then inserted. The upper abdomen was unr emarkable. An enlarged fibroid uterus was seen filling the pelvis. Two lateral ports were placed on the right and one on the left under direct visualization. She then was placed in Trendelenburg posi tion and the da Dex robot docked on the left side. The instruments were then brought into the abdo aurora cavity under direct visualization. The left fallopian tube was along the mesosalpinx. The utero-ovarian ligament, followed by the round ligament were then cauterized and transected. The anterior leaf of the broad ligament was then incised on the left. Given the increased transverse diameter of the fibroid uterus extending a gainst the pelvic side conway, the uterine arteries required ligation near their origin off the anteri or branch of the hypogastric arteries. A bilateral ureterolysis was also required to accomplish this as well as to safely take down the peritoneum, given the compression of the sidewalls by the fibroid uterus. The pelvic peritoneum at the pelvic brim was incised. The ureters were gently dissected fr ee. They were lateralized from the pelvic brim all the way down to the bladder bilaterally. The [place] rine arteries were then skeletonized, cauterized, and transected bilaterally. The anterior leaf of t he broad ligament was then incised over the cervix. The bladder was gently dissected off the cervix and upper vagina. Several of the fibroids were mostly off the uterus to try to change the transverse diameter to a longitudinal diameter to help in removal through the vagina. Once this was accomplished, a circumferential colpotomy incision was made with the hot alison. The specimen was th en removed through the vagina. This required extensive vaginal morcellation to safely remove. The vaginal cuff was then closed with a running suture of 0 V-Loc 180. A bilateral uterosacral ligam ent colpopexy was performed by attaching the lateral aspects of the vaginal cuff to the ipsilateral u terosacral ligaments near their insertion into the coccygeal-sacrospinous ligament complexes. The pe lvis was then irrigated with sterile saline, and hemostasis was present. The robot was then undocked . The fascia was closed with 0 Vicryl. The skin was closed with 4-0 Monocryl and surgical adhesive. Cystoscopy was then performed. Both ureters had vigorous jets of urine. There was no evidence of bl adder nor urethral injury seen. Both ureters had active jets of urine. There was no obvious patholo gy seen. A small vaginal laceration occurred during morcellation. This was closed with 2-0 Vicryl. Anesthesia was then reversed and the patient taken the PACU awake and in stable condition. COMPLICATIONS: None. DISPOSITION: Patient stable to PACU. /[id number]/MODL
[2017-07-14] MEDS: KETOROLAC 30 MG/1 ML SDV IVP SCH ×2 (05:20→11:17)
[2017-07-14] MEDS: OXYCODONE/APAP 5/325 TAB PO PRN (08:56)
[2017-07-14 09:23] VITALS: BP 98/65; PULSE 81; RESP 17; TEMP 97.9; O2SAT 95
[2017-07-14] MEDS: DOCUSATE SODIUM 100 MG CAP PO SCH (10:33)
[2017-07-14] MEDS: SIMETHICONE 80 MG TAB CHEW PO SCH (10:34)
--- NOTE | 2017-07-14 11:03 | GDS ---
[f rep st] DISCHARGE SUMMARY DISCHARGE DIAGNOSIS: Symptomatic uterine fibroids. PROCEDURES: 1. Robotic-assisted total laparoscopic hysterectomy, bilateral salpingectomy. 2. Bilateral ureterolysis. 3. Uterosacral ligament colpopexy. 4. Cystoscopy. HISTORY: The patient is a 47-year-old, para 1, woman with symptomatic uterine fibroids. She was andrew en to the operating room on 07/13/2017 where she underwent the above-mentioned procedures without com plications. Her uterus weighed 806 g. Her postoperative course was uneventful. The morning after surgery she was ambulating, voiding, and tolerating a general diet. She was discharged home with Percocet and ibuprofen for pain. She was to follow up in the office 2 weeks after discharge. /[id number]/MODL
== END 2017-07-14 12:00 | disposition home or self-care (01) ==
LOC: FSGY 08:43 → F3E 13:46 → FOB 15:07
PROVIDERS: ADMIT Obstetrics & Gynecology; ATTEND Obstetrics & Gynecology
PROC: 0UUG4JZ Supplement Vagina with Synthetic Substitute, Percutaneous Endoscopic Approach (ICD-10-PCS; principal; 2017-07-13 10:15)
PROC: 0UT9FZZ Resection of Uterus, Via Natural or Artificial Opening With Percutaneous Endoscopic Assistance (ICD-10-PCS; principal; 2017-07-13 10:15)
PROC: 0UT7FZZ Resection of Bilateral Fallopian Tubes, Via Natural or Artificial Opening With Percutaneous Endoscopic Assistance (ICD-10-PCS; principal; 2017-07-13 10:15)
PROC: 0UBC8ZZ Excision of Cervix, Via Natural or Artificial Opening Endoscopic (ICD-10-PCS; principal; 2017-07-13 10:15)
DX: D25.1 Intramural leiomyoma of uterus (principal); N94.6 Dysmenorrhea, unspecified; D50.9 Iron deficiency anemia, unspecified; F32.9 Major depressive disorder, single episode, unspecified; Z87.440 Personal history of urinary (tract) infections; R10.2 Pelvic and perineal pain; N81.4 Uterovaginal prolapse, unspecified
CPT/HCPCS: 57425; 58572; G0378; J0690; J1100; J1885; J2250; J2405; J2704; J3010